=== PATIENT | female | born 1985 | race Caucasian/White ===

== ENCOUNTER 2017-09-18 21:31 | Emergency (ER) | payer MEDICAID ==
[~2017-09-18] VITALS: Ht 165.1 cm; Wt 104.3 kg
[~2017-09-18 21:31] MED LIST: HYDR-548 PO; OXYC-133 PO; SULF1TAB48 PO
[2017-09-18] MEDS ORDERED: SERTRALINE 100 MG (21:45)
[2017-09-18] MEDS ORDERED: HYDROCODON-ACETAMINOPHN 10-325 (21:45)
--- NOTE | 2017-09-18 21:46 | NUR ---
Patient walked had fall yesterdayna dn injuried right 3rd and 4th toe and left knee. Patient c/o pian upon wt. bearing. Capillary refill less than 3 second. anble to bend injuried toe with pain. Left knee with small bruise
--- NOTE | 2017-09-18 21:47 | NUR ---
Dr Arora into eval patient
--- NOTE | 2017-09-18 22:20 | NUR ---
Patient discharged to home in stable conditon. Written and verbal after care instructions given. Patient verbalizes understanding of instructions. walked out of ER with steady gait.
[2017-09-18 22:23] VITALS: BP 135/89
== END 2017-09-18 22:23 | disposition home or self-care (01) ==
LOC: ER 21:32
DX: S80.02XA Contusion of left knee, initial encounter (principal); F17.200 Nicotine dependence, unspecified, uncomplicated; Z90.49 Acquired absence of other specified parts of digestive tract; W18.30XA Fall on same level, unspecified, initial encounter; Y93.89 Activity, other specified; Y92.9 Unspecified place or not applicable; Y99.9 Unspecified external cause status
CPT/HCPCS: 73630; A4663

== ENCOUNTER 2018-05-08 00:03 | Emergency (ER) | payer MEDICAID ==
[~2018-05-08] VITALS: Ht 165.1 cm; Wt 136.1 kg
[~2018-05-08 00:03] MED LIST changes: -HYDR-548 PO; +HYDROCODON-ACETAMINOPHN 10-325; -OXYC-133 PO; +SERTRALINE 100 MG; -SULF1TAB48 PO
[2018-05-08] MEDS ORDERED: VANCOMYCIN 1G/D5W 200 ML PIGGYBACK IV ONE (01:30)
[2018-05-08] MEDS ORDERED: VANCOMYCIN IV 200 ML ONE (01:39)
--- NOTE | 2018-05-08 03:05 | NUR ---
IV removed. Catheter intact and site benign. Pressure and 4x4 gauze applied to site. No bleeding noted.
--- NOTE | 2018-05-08 03:10 | NUR ---
Patient discharged to home in stable conditon. Written and verbal after care instructions given. Patient verbalizes understanding of instructions. Pt ambulated out of ER in steady gait. All belongings with pt. VSS. No acute distress noted. Pt verbalizes understanding of not to drive home after taking [place].
[2018-05-08 05:31] VITALS: BP 141/91
== END 2018-05-08 03:10 | disposition home or self-care (01) ==
LOC: ER 00:07
DX: N61.0 Mastitis without abscess (principal); F17.210 Nicotine dependence, cigarettes, uncomplicated; Z79.891 Long term (current) use of opiate analgesic; Z79.899 Other long term (current) drug therapy
CPT/HCPCS: 96365; 99284; A4663; J3370

== ENCOUNTER 2021-01-04 21:52 | Emergency (ER) | payer SELFPAY ==
[~2021-01-04] VITALS: Ht 167.6 cm; Wt 136.1 kg
--- NOTE | 2021-01-04 22:00 | NUR ---
Dr. Mejia at bedside for MSE.
--- NOTE | 2021-01-04 22:15 | NUR ---
Patient arrive at the ER with complaint of right breast pain.
[2021-01-04 22:30] LABS: *URINE HCG, QUAL NEGATIVE (NEGATIVE)
[2021-01-04 22:38] LABS: *AMPHETAMINE, URINE NEGATIVE (NEGATIVE); *CANNABINOID, URINE NEGATIVE (NEGATIVE); *COCCAINE, URINE NEGATIVE (NEGATIVE); *OPIATE, URINE POSITIVE (NEGATIVE); *PHENCYCLIDINE SCREEN,URINE NEGATIVE (NEGATIVE)
[2021-01-04] MEDS ORDERED: SULFAMETH/TRIMETH 800/160 MG TABLET ONE (22:42)
[2021-01-04] MEDS ORDERED: SULFAMETH/TRIMETH 800/160 MG TABLET PO ONE (22:45)
--- NOTE | 2021-01-04 22:48 | NUR ---
Patient discharged to home in stable condition. Written and verbal after care instructions given. Patient verbalizes understanding of instructions. Stressed follow up or return to ER for worsening s/s.
[2021-01-04 22:49] VITALS: BP 159/100
== END 2021-01-04 22:49 | disposition home or self-care (01) ==
LOC: ER 21:54
DX: N61.0 Mastitis without abscess (principal); R03.0 Elevated blood-pressure reading, without diagnosis of hypertension; F17.210 Nicotine dependence, cigarettes, uncomplicated; E66.01 Morbid (severe) obesity due to excess calories; Z68.42 Body mass index [BMI] 45.0-49.9, adult; L73.2 Hidradenitis suppurativa; E24.9 Cushing's syndrome, unspecified; E28.2 Polycystic ovarian syndrome
CPT/HCPCS: 84703; A4663

== ENCOUNTER 2024-06-05 01:00 | Emergency (ER) | payer SELFPAY ==
[~2024-06-05] VITALS: Ht 167.6 cm; Wt 113.4 kg
[2024-06-05] MEDS ORDERED: IBUPROFEN 600 MG TABLET ONE ×2 (01:48→03:09)
[2024-06-05 01:56] LABS: *BILIRUBIN,URIN 1+ (NEGATIVE); *BLOOD, URINE 1+ (NEGATIVE); *CLARITY,URINE TURBID (CLEAR); *COLOR,URINE DARK YELLOW (YELLOW); *KETONES,URINE 1+ (NEGATIVE); *PROTEIN,URINE 2+ (NEGATIVE); BASOPHILS % (AUTO) 0.1 % (0.0-2.0); HEMATOCRIT 39.3 % (31.2-41.9); HEMOGLOBIN 12.6 g/dL (10.9-14.3); LEUKOCYTE ESTERASE ,URINE NEGATIVE (NEGATIVE); LYMPHOCYTES # (AUTO) 0.4 K/uL (0.8-4.8); LYMPHOCYTES % (AUTO) 3.5 % (20.5-51.5); MEAN CORPUSCULAR HEMOGLOBIN 23.6 uug (24.7-32.8); MEAN CORPUSCULAR HGB CONC 32 g/dL (32.3-35.6); MEAN CORPUSCULAR VOLUME 73.4 fL (75.5-95.3); MONOCYTES # (AUTO) 0.7 K/uL (0.1-1.30); MONOCYTES % (AUTO) 5.9 % (0.0-11.0); NEUTROPHILS % (AUTO) 90.5 % (38.5-71.5); NITRITE, URINE NEGATIVE (NEGATIVE); PH,URINE 5.5 (5.0-8.0); PLATELET COUNT (AUTO) 244 K/uL (179-408); RED BLOOD CELL COUNT(AUTO) 5.36 MIL/uL (3.63-4.92); RED CELL DISTRIBUTION WIDTH 15.3 % (12.3-17.7); UGLUCOSE NEGATIVE (NEGATIVE); WHITE BLOOD COUNT (AUTO) 12.1 K/uL (3.8-11.8)
[2024-06-05 01:59] LABS: DIFFERENTIAL COMMENT 1
[2024-06-05] MEDS: IV NORMAL SALINE 1000 ML BAG IV ONE (02:00)
[2024-06-05] MEDS: IBUPROFEN 600 MG TABLET PO ONE (02:02)
[2024-06-05 02:04] LABS: CALCIUM 8.6 mg/dL (8.5-10.1); CARBON DIOXIDE 25 mmol/L (21-32); CHLORIDE 103 mmol/L (98-107); CREATININE 0.8 mg/dL (0.6-1.3); GLUCOSE 153 mg/dL (74-106); POTASSIUM 2.9 mmol/L (3.5-5.1); SODIUM SERUM 139 mmol/L (136-145); UREA NITROGEN, BLOOD 11 mg/dL (7-18)
[2024-06-05] MEDS ORDERED: ONDANSETRON 4 MG/2 ML VIAL ONE (02:07)
[2024-06-05] MEDS: ONDANSETRON 4 MG/2 ML VIAL IV ONE (02:10)
[2024-06-05 02:12] LABS: ALANINE AMINOTRANSFERASE 19 U/L (14-59); ALBUMIN 2.9 g/dL (3.4-5.0); ALKALINE PHOSPHATASE 109 U/L (50-136); ASPARTATE AMINOTRANSFERASE 6 U/L (15-37); BILIRUBIN,DIRECT 0.1 mg/dL (0.0-0.2); BILIRUBIN,TOTAL 0.5 mg/dL (0.2-1.0); TOTAL PROTEIN, SERUM 7.1 g/dL (6.4-8.2)
[2024-06-05 02:14] LABS: *URINE HCG, QUAL NEGATIVE (NEGATIVE)
[2024-06-05 02:19] LABS: SQUAMOUS EPITHELIAL CELL,UR FEW /HPF (NONE SEEN); URINE AMORPHOUS URATE MANY /HPF; WBC,URINE 0-3 /HPF (0-3)
[2024-06-05 02:20] LABS: BACTERIA,URINE RARE /HPF (NONE SEEN)
[2024-06-05 02:50] LABS: ETHANOL < 3 MG/DL (0-10)
[2024-06-05 07:35] VITALS: O2SAT 98
[2024-06-05] MEDS ORDERED: POTASSIUM BICARBONATE/CIT AC 25 MEQ TABLET.EFF ONE (08:40)
[2024-06-05] MEDS: POTASSIUM BICARBONATE/CIT AC 25 MEQ TABLET.EFF PO ONE (08:45)
[2024-06-05 12:07] LABS: *AMPHETAMINE, URINE NEGATIVE (NEGATIVE); *BARBITURATE, URINE NEGATIVE (NEGATIVE)
[2024-06-05 12:08] LABS: *BENZODIAZEPINE, URINE NEGATIVE (NEGATIVE); *CANNABINOID, URINE NEGATIVE (NEGATIVE); *COCCAINE, URINE NEGATIVE (NEGATIVE); *OPIATE, URINE POSITIVE (NEGATIVE); *PHENCYCLIDINE SCREEN,URINE NEGATIVE (NEGATIVE); FENTANYL, URINE NEGATIVE (NEGATIVE)
== END 2024-06-05 09:16 | disposition home or self-care (01) ==
LOC: ER 01:03
DX: B34.9 Viral infection, unspecified (principal); R06.02 Shortness of breath; R10.2 Pelvic and perineal pain; E66.01 Morbid (severe) obesity due to excess calories; Z68.41 Body mass index [BMI] 40.0-44.9, adult; F17.200 Nicotine dependence, unspecified, uncomplicated; Z79.891 Long term (current) use of opiate analgesic; Z20.822 Contact with and (suspected) exposure to COVID-19
CPT/HCPCS: 87804 ×2; 80076; 80048; 81001; 84703; 85025; 84145; 85730; 87426; 87040 ×2; 84484; 36415; 93005; 71045; 99285; 96361; 96374; 83605; 87086; 80320; 80307; J2405; J7040; A4606; A4663; G0480